=== PATIENT | female | born 1970 | race African-American/Black ===

== ENCOUNTER 2017-06-18 08:15 | Emergency (ER) | payer SELFPAY | END 2017-06-18 09:30 | disposition home or self-care (01) | LOC: ERS 08:15 | DX: S29.012A Strain of muscle and tendon of back wall of thorax, initial encounter (principal); W19.XXXA Unspecified fall, initial encounter; Y93.02 Activity, running | CPT/HCPCS: 99283 ==

== ENCOUNTER 2017-10-11 07:53 | Emergency (ER) | payer SELFPAY | END 2017-10-11 09:15 | disposition home or self-care (01) | LOC: ERS 07:53 | DX: S39.012A Strain of muscle, fascia and tendon of lower back, initial encounter (principal); S29.012A Strain of muscle and tendon of back wall of thorax, initial encounter; X50.1XXA Overexertion from prolonged static or awkward postures, initial encounter; Y92.89 Other specified places as the place of occurrence of the external cause | CPT/HCPCS: 99283 ==